=== PATIENT | male | born 1980 | race Caucasian/White ===

== ENCOUNTER 2018-10-19 10:19 | Emergency (ER) | payer OTHER ==
[2018-10-19 10:22] VITALS: BP 134/89
[2018-10-19] MEDS ORDERED: Ondansetron 4 MG/2 ML SDV IVPUSH PRN (10:29)
[2018-10-19] MEDS ORDERED: Ondansetron 4 MG/2 ML SDV ONE (10:37)
[2018-10-19 10:40] LABS: CHLORIDE,CL 101 mEq/L (98-106); SODIUM,NA 139 mEq/L (136-145)
[2018-10-19] MEDS ORDERED: Iopamidol 755 Mg/ML 200 ML Bottle IV ONE (10:46)
[2018-10-19] MEDS ORDERED: fentaNYL 100 MCG/2 ML SDV IVPUSH PRN (10:47)
[2018-10-19] MEDS ORDERED: fentaNYL 100 MCG/2 ML SDV IVPUSH ONE (11:12)
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
[2018-10-19] MEDS ORDERED: Acetaminophen/oxyCODONE 325-5 MG Tab PO ONE (11:42)
== END 2018-10-19 11:56 ==
LOC: CC.ED 10:19
DX: K35.80 Unspecified acute appendicitis (principal)
CPT/HCPCS: 36415; 74177; 80053; 81003; 85025; 86140; 96374; 96375; 99285-25; A9270-GY; J2405; J3010; Q9967